=== PATIENT | male | born 1985 | race Hispanic/Latino ===

== ENCOUNTER 2019-09-24 12:44 | Inpatient (IN) | payer SELFPAY ==
[2019-09-24] MEDS ORDERED: Lorazepam 2 MG/ML VIAL ONE (13:14)
[2019-09-24] MEDS ORDERED: chlordiazePOXIDE HCl 25 MG CAP ONE (13:20)
[2019-09-24] MEDS ORDERED: chlordiazePOXIDE HCl 25 MG CAP PO SCH (13:30)
--- NOTE | 2019-09-24 13:32 | CT ---
CT OF BRAIN WITHOUT CONTRAST: HISTORY: Seizure, altered mental status. COMPARISON: There are no previous exams for comparison. FINDINGS: There is a suggestion of a 2.8 cm mass in the superior aspect of the left cerebellar hemisphere. The re is also a suggestion of a tiny amount of subarachnoid hemorrhage on the left. No midline shift is seen. The ventricular size is appropriate. The bony calvarium is intact. The visualized paranasal sinuses and mastoid air cells are well aerated. IMPRESSION: Findings suspicious for a left-sided mass and a tiny amount of acute subarachnoid hemorrhage. Furthe r evaluation with MRI (with and without IV contrast) is recommended. Discussed over the telephone with Dr. Gerardo Herny at 1:10 p.m. CODE CR POS: OFF
--- NOTE | 2019-09-24 13:40 | RAD ---
PORTABLE UPRIGHT FRONTAL CHEST RADIOGRAPH: Date: 09/24/2019 COMPARISON: None. HISTORY: Seizure. FINDINGS: No pneumothorax, pleural fluid, focal consolidation, or alveolar edema. Heart and mediastinal contour s are grossly unremarkable. IMPRESSION: No acute findings. POS: [facility]
[2019-09-24 13:50] LABS: Acetaminophen Less than 6.0 mcg/mL (10.0-30.0); Alcohol Less than 10 mg/dL (Less than 10); Magnesium 1.9 mg/dL (1.6-2.6); Salicylate Less than 8.0 mg/dL (15.0-30.0)
[2019-09-24 13:51] LABS: #Lymphocytes 0.5 thou/uL (1.20-3.40); #Monocytes 0.3 thou/uL (0.11-0.59); #Neutrophils 5.4 thou/uL (1.40-6.50); %Basophils 0.3 % (0.0-1.0); %Eosinophils 0.3 % (0.0-10.0); %Lymphocytes 7.2 % (21.0-51.0); %Monocytes 4.2 % (0.0-10.0); Hemoglobin 16.3 g/dL (14.0-18.0); Mean Corpuscular HGB CONC 36.1 g/dL (32.0-36.0); Mean Corpuscular Hemoglobin 33.8 pg (27.0-31.0); Mean Corpuscular Volume 93.5 fL (78.0-98.0); Mean Platelet Volume 10.3 fL (7.4-10.4); Platelet Count 42 thou/uL (130-400); RBC Distribution Width 11.7 % (11.5-14.5); Red Blood Cell (RBC) Count 4.83 mill/uL (4.70-6.10); White Blood Cell (WBC) Count 6.2 thou/uL (4.8-10.8)
[2019-09-24 13:52] LABS: Band 8 % (5-11); Lymphocytes 12 % (21-51); MDiff Complete? YES; Neutrophil 80 % (42-75); Platelet Morphology Comment Appears Decreased; RBC Morphology Normal
[2019-09-24 13:54] LABS: ALT (SGPT) 220 U/L (8-55); AST (SGOT) 831 U/L (5-34); Albumin 3.8 g/dL (3.5-5.0); Alkaline Phosphatase 269 U/L (40-110); Anion Gap 17 mmol/L (10-20); BUN (Urea Nitrogen) Less than 4 mg/dL (8.9-20.6); Bilirubin, Total 5.8 mg/dL (0.2-1.2); Calc. Creatinine Clearance 0 mL/min (70-130); Calcium 8.7 mg/dL (7.8-10.44); Carbon Dioxide 27 mmol/L (22-29); Chloride 93 mmol/L (98-107); Estimated GFR-MDRD Greater than 90; Globulin 3.4 g/dL (2.4-3.5); Glucose 185 mg/dL (70-105); Potassium 3.2 mmol/L (3.5-5.1); Protein, Total 7.2 g/dL (6.0-8.3); Sodium 134 mmol/L (136-145)
--- NOTE | 2019-09-24 15:35 | MRI ---
Brain MRI with and without contrast: 09/24/2019 COMPARISON: Head CT 09/24/2019 HISTORY: Seizure, EtOH abuse TECHNIQUE: Multiplanar multisequence MR imaging of the brain is obtained with and without contrast TECHNIQUE: Multiplanar multisequence MR imaging of the brain is obtained without contrast. FINDINGS: The diffusion weighted imaging demonstrates no evidence for acute infarction. The axial gradient echo imaging demonstrates a small focus of blooming artifact within the posterior aspect of the sylvian fissure on the left on axial image 11. There is hyperdensity in this region on recent head CT suggesting subarachnoid blood. Further superiorly within additional cortical sulci within the superior aspect of the left sylvian fissure extending into the posterior left frontal region there is increased FLAIR signal without blooming artifact. This could signify small volume pro teinaceous material, which could be related to small volume subarachnoid blood as well. Proteinaceous material on the basis of infection is a less likely possibility. There is a small arachnoid cyst anterior to the temporal lobe on the left measuring 2.4 cm. No midlin e shift is noted. No intra-axial mass lesion. No intra-axial hematoma. There is mild mucosal thickening involving the alveolar recess of the maxillary sinus on the left. Ar terial flow voids at the axial level of the skull base appear grossly unremarkable on the T2-weighted imaging. The postcontrast imaging demonstrates no abnormal enhancement within the brain parenchyma. IMPRESSION: Signal abnormality within the posterior aspect of the sylvian fissure on the left as well as within cortical sulci within the left frontal lobe. This is favored to represent small volume subarachnoid hemorrhage. Proteinaceous material within the subarachnoid space on the basis of infecti on cannot be fully excluded. Clinical correlation is essential. Short-term follow-up CT examination suggested as well.
[2019-09-24] MEDS ORDERED: Ondansetron ODT 4 MG TAB SL PRN (15:41)
[2019-09-24] MEDS ORDERED: Ondansetron PF 4 MG/2 ML Vial IVP PRN ×2 (15:41→19:10)
[2019-09-24] MEDS ORDERED: Magnevist 469MG/ML 20 ML VIAL ONE (16:36)
[2019-09-24 17:52] LABS: Amphetamine Not Detected (NotDetected); Barbiturates Screen Not Detected (NotDetected); Benzodiazepine Screen Detected (NotDetected); Cocaine Metabolite Screen Not Detected (NotDetected); Medtox Control Line Valid? VALID (VALID); Medtox Reader # READER 1; Methadone Not Detected (NotDetected); Methamphetamine Not Detected (NotDetected); Opiate Screen Not Detected (NotDetected); Oxycodone Screen Not Detected (NotDetected); Phencyclidine (PCP) Not Detected (NotDetected); THC/Cannabinoid Screen Not Detected (NotDetected); Tricyclic Screen Not Detected (NotDetected)
[2019-09-24] MEDS ORDERED: Lorazepam 2 MG/ML VIAL SLOW IVP PRN (19:10)
[2019-09-24] MEDS ORDERED: hydrALAZINE 20 MG/ML VIAL SLOW IVP PRN (19:10)
[2019-09-24] MEDS ORDERED: Labetalol HCl 100 MG/20 ML VIAL SLOW IVP PRN (19:10)
[2019-09-24] MEDS ORDERED: Ondansetron ODT 4 MG TAB PO PRN (19:10)
[2019-09-24] MEDS: Multivitamins, Adult 10 ML, Folic Acid 1 MG, Thiamine HCl 100 MG in Dextrose 5 %-0.45 %... IV SCH (22:06)
[2019-09-24] MEDS: Atorvastatin Calcium 40 MG TAB PO SCH (22:07)
[2019-09-24] MEDS: Famotidine/PF 20 mg/2ml Vial SLOW IVP SCH (22:07)
[2019-09-24 22:40] VITALS: BMI 29.2
--- NOTE | 2019-09-24 22:58 | ULT ---
BILATERAL CAROTID DUPLEX ULTRASOUND WITH SPECTRAL ANALYSIS AND COLOR FLOW EVALUATION 09/24/19 HISTORY: CVA. FINDINGS: Dillard scale, color flow, Doppler evaluation with spectral analysis of the bilateral carotid arteries i s performed with 2D imaging. No significant atherosclerotic plaque is seen within the carotid arterie s bilaterally. There is less than 50% maximal stenosis in the bilateral internal carotid arteries according to the p eak systolic velocities and the ICA/CCA ratios. The peak systolic velocity in the right ICA is 36.8 c m/s with an ICA/CCA ratio of 0.48. Peak systolic velocity in the left ICA is 48.6 cm/s with an ICA/CC A ratio of 0.56. Antegrade flow is demonstrated in the vertebral arteries bilaterally. IMPRESSION: No hemodynamically significant stenosis in the bilateral internal carotid arteries. POS: [facility]
[2019-09-25 04:42] LABS: ALT (SGPT) 193 U/L (8-55); AST (SGOT) 647 U/L (5-34); Albumin 3.4 g/dL (3.5-5.0); Alkaline Phosphatase 263 U/L (40-110); Anion Gap 12 mmol/L (10-20); BUN (Urea Nitrogen) Less than 4 mg/dL (8.9-20.6); Bilirubin, Total 5.5 mg/dL (0.2-1.2); Calc. Creatinine Clearance 164 mL/min (70-130); Calcium 8.2 mg/dL (7.8-10.44); Carbon Dioxide 29 mmol/L (22-29); Cardiac Risk 19.8 (Less than 4.5); Chloride 97 mmol/L (98-107); Cholesterol 218 mg/dl (< 200 Desired); Estimated GFR-MDRD Greater than 90; Globulin 3.3 g/dL (2.4-3.5); Glucose 106 mg/dL (70-105); HDL Cholesterol 11 mg/dL (>60 Neg Risk); Protein, Total 6.7 g/dL (6.0-8.3); Sodium 135 mmol/L (136-145); Triglycerides 844 mg/dL (Less than 150)
[2019-09-25 04:55] LABS: Potassium 2.9 mmol/L (3.5-5.1)
[2019-09-25 05:06] LABS: Thyroid Stimulating Hormone 2.9975 uIU/mL (0.35-4.94)
[2019-09-25 05:15] LABS: Vitamin B12 Greater than 2000 pg/mL (211-911)
[2019-09-25] MEDS ORDERED: Potassium Chloride 20 MEQ TAB PO SCH ×2 (05:30→10:30)
[2019-09-25 05:54] LABS: Band 17 % (5-11); Hemoglobin 15.2 g/dL (14.0-18.0); Lymphocytes 23 % (21-51); MDiff Complete? YES; Mean Corpuscular HGB CONC 34.8 g/dL (32.0-36.0); Mean Corpuscular Hemoglobin 33.4 pg (27.0-31.0); Mean Corpuscular Volume 95.8 fL (78.0-98.0); Mean Platelet Volume 11.1 fL (7.4-10.4); Monocytes 3 % (0-10); Neutrophil 57 % (42-75); Platelet Count 42 thou/uL (130-400); Platelet Morphology Comment Appears Decreased; RBC Distribution Width 11.9 % (11.5-14.5); Red Blood Cell (RBC) Count 4.54 mill/uL (4.70-6.10); White Blood Cell (WBC) Count 6.3 thou/uL (4.8-10.8)
--- NOTE | 2019-09-25 08:55 | CT ---
CT HEAD WITHOUT CONTRAST: HISTORY: Followup from CVA yesterday. Stroke. COMPARISON: 09/24/2019 FINDINGS: Hemorrhage: No intraparenchymal hemorrhage or extra-axial hematoma. Persistent hyperdensity in the le ft sylvian fissure. Correlation made with the axial GRE sequence and axial FLAIR sequence does demonstrate corresponding signal abnormality. Findings appear to be stable and conformed to a small f ocus of subarachnoid blood. Brain parenchyma: Cortical barraza-white matter differentiation is preserved. No mass effect or midline shift. Basilar cisterns are patent. Ventricular system: Ventricles and sulci are patent and symmetric. Calvarium: Intact. Sinuses and mastoid air cells: Adequate aeration. IMPRESSION: Essentially stable hyperdensity in the left sylvian fissure. Small focus of subarachnoid blood is fav ored. Transcribed Date/Time: 09/25/2019 9:22 AM
[2019-09-25] MEDS ORDERED: Prevnar 13-Val Conj/PF 0.5 ML SYRINGE IM ONE (09:00)
[2019-09-25] MEDS: FLU VACC QS2019-20(6MOS UP)/PF 60 MCG/0.5 ML SYRINGE IM ONE (09:19)
[2019-09-25] MEDS: Famotidine/PF 20 mg/2ml Vial SLOW IVP SCH (09:21)
[2019-09-25] MEDS: Acetaminophen 500 MG TAB PO PRN ×2 (09:31→16:58)
--- NOTE | 2019-09-25 10:18 | PDOC.HOSPP ---
- Subjective Encounter Date: 09/25/19 Encounter Time: 10:15 Subjective: f/u for ETOH withdrawal seizure resulting in small SAH. Feels ok overall and no reported recurrent seizures. Tx with Ativan and Keppra. - Objective Vital Signs & Weight: Vital Signs (12 hours) Temp Pulse Resp BP BP Pulse Ox 09/25/19 08:00 132/97 H 09/25/19 07:45 100 F H 93 16 132/97 H 98 09/25/19 04:00 113/81 09/25/19 03:58 99.8 F H 97 16 113/81 98 09/25/19 00:00 136/95 H 09/24/19 23:53 99.9 F H 106 H 16 130/86 97 Weight Weight 175 lb 6.4 oz Result Diagrams: 09/25/19 04:05 09/25/19 04:05 Additional Labs: Laboratory Tests 09/24/19 09/24/19 09/24/19 13:10 13:10 15:56 Potassium 3.2 L Magnesium 1.9 AST 831 H ALT 220 H Ammonia Greater than 925 H Triglycerides Cholesterol HDL Cholesterol Vitamin B12 Folate TSH 3rd Generation 09/25/19 09/25/19 09/25/19 04:05 04:05 04:05 Potassium Magnesium 2.0 AST 647 H ALT 193 H Ammonia Triglycerides 844 H Cholesterol 218 H HDL Cholesterol 11 Vitamin B12 Greater than 2000 H Folate 61.20 H TSH 3rd Generation 2.9975 09/25/19 04:05 Potassium Magnesium AST ALT Ammonia 106 H Triglycerides Cholesterol HDL Cholesterol Vitamin B12 Folate TSH 3rd Generation Radiology Reviewed by me: Yes (Carotid sono - neg; CT brain - no significant change) EKG Reviewed by me: Yes (Tele - SR) Hospitalist ROS - Medication Medications: Active Medications Generic Name Dose Route Start Last Admin Trade Name Freq PRN Reason Stop Dose Admin Acetaminophen 1,000 mg 09/24/19 19:10 09/25/19 09:31 Tylenol PO 1,000 mg Q6H PRN Administration Mild Pain (1-3) Atorvastatin Calcium 40 mg 09/24/19 21:00 09/24/19 22:07 Lipitor PO 40 mg HS KATHI Administration Famotidine 20 mg 09/24/19 21:00 09/25/19 09:21 Pepcid SLOW IVP Not Given Q12HR KATHI Multivitamins 10 ml/ Folic 1,011.2 mls @ 125 mls/hr 09/24/19 21:00 09/24/19 22:06 Acid 1 mg/ Thiamine HCl 100 mg IV 09/27/19 05:06 1,011.2 mls / Dextrose/Sodium Chloride Q24HR KATHI Administration Levetiracetam 500 mg/ Device 100 mls @ 200 mls/hr 09/24/19 21:00 09/25/19 09: 21 IVPB 100 mls BID KATHI Administration - Exam General Appearance: NAD, awake alert Eye: PERRL, anicteric sclera ENT: normocephalic atraumatic, no oropharyngeal lesions Neck: supple, symmetric, no JVD, no thyromegaly, no lymphadenopathy Heart: RRR, no murmur, no gallops, no rubs, normal peripheral pulses Respiratory: CTAB, no wheezes, no rales, no ronchi, normal chest expansion Gastrointestinal: soft, non-tender, non-distended, normal bowel sounds, no palpable masses Extremities: no cyanosis, no clubbing, no edema Skin: normal turgor, no lesions Neurological: cranial nerve grossly intact, no new deficit Musculoskeletal: normal tone, normal strength Psychiatric: normal affect, normal behavior, A&O x 3 Hosp A/P (1) SAH (subarachnoid hemorrhage) Code(s): I60.9 - NONTRAUMATIC SUBARACHNOID HEMORRHAGE, UNSPECIFIED Status: Acute Plan: conservative mgmt, hold ASA/NSAIDs (2) Alcohol withdrawal seizure Code(s): F10.239 - ALCOHOL DEPENDENCE WITH WITHDRAWAL, UNSPECIFIED; R56.9 - UNSPECIFIED CONVULSIONS Status: Acute Plan: Stable currently, continue Ativan/Keppra (3) Alcohol abuse Code(s): F10.10 - ALCOHOL ABUSE, UNCOMPLICATED Status: Acute Plan: Banana bag daily, ETOH avoidance, Ativan for d/c (4) Hypokalemia Code(s): E87.6 - HYPOKALEMIA Status: Acute Plan: KCL supplementation - Plan plan discussed w/ family, 

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
[2019-09-25] MEDS ORDERED: Chlorhexidine Gluconate 15 ML UDCUP SSP SCH (11:00)
--- NOTE | 2019-09-25 11:36 | CON ---
DATE OF CONSULTATION: HISTORY OF PRESENT ILLNESS: The patient is a 34-year-old male with a history of EtOH abuse, who presented to the ER last night following a seizure event. The patient reports that he had recently been trying to quit his alcohol use, but subsequently had several seizure episodes at home. He was initially slightly confused upon arrival to the ER, but this has improved since this admission. The patient had CT and MRI of the brain, which were notable for small hyperdensity in the left sylvian fissure, which favors acute traumatic subarachnoid hemorrhage, likely from the seizure event. He also has a left-sided arachnoid cyst in the frontal region, which is an incidental finding. I visited the patient at the bedside on the Stroke Unit. The patient is awake, alert, in no acute distress. He is slightly tremulous. He has free active range of motion of all extremities. No focal motor weakness. No focal neurologic deficits are appreciated. PAST MEDICAL HISTORY: EtOH abuse. ALLERGIES: THE PATIENT IS ALLERGIC TO ASPIRIN. MEDICATIONS: No known medication. REVIEW OF SYSTEMS: Per HPI. PHYSICAL EXAMINATION: GENERAL: The patient is awake, alert, in no acute distress. HEENT: Head; normocephalic and atraumatic. Eyes; PERRLA. Extraocular movements intact. ENT; oral mucosa is pink, intact, and moist. NECK: Nontender. The patient has normal range of motion of the neck. No meningismus or nuchal rigidity. RESPIRATORY: Symmetric chest expansion. CARDIOVASCULAR: Slightly tachycardic. MUSCULOSKELETAL: Free active range of motion of all extremities. No focal motor weakness. No deformities. NEURO: A and O x4. No focal neurologic deficits are appreciated. ASSESSMENT AND PLAN: The patient is a 34-year-old male, who suffered a seizure event following the EtOH withdrawal. His CT and MRI showed hyperdensity that is favored to be acute traumatic subarachnoid hemorrhage, likely from the seizure event. This has been stable on followup imaging. He also has an incidental left-sided arachnoid cyst formation, which is also inconsequential. At this point, the patient has remained neurologically intact with stable followup imaging. There are no plans for acute neurosurgical intervention. He does not require any neurosurgical followup. I anticipate the small amount of blood will resolve with time. Please reach out to Neurosurgery for any additional questions or concerns. Job ID: [id number]
--- NOTE | 2019-09-25 12:08 | CT ---
CTA OF THE HEAD WITH AND WITHOUT CONTRAST: NONCONTRAST CT OF BRAIN: CTA OF THE BRAIN: INDICATION: Subarachnoid hemorrhage noted on previous CT. COMPARISON: 09/25/2019 and 09/24/2019 CORRELATION: Brain MRI from 09/24/2019. FINDINGS: Hemorrhage: Previously noted subarachnoid blood in the left sylvian fissure is less evident currentl y. No new areas of hemorrhage. [place]/Infarction: None. Midline Shift: None. Hydrocephalus: None. Skull and Extracranial Soft tissues: Normal. Right ICA: Distal cervical right internal carotid artery has appropriate enhancement and luminal domenic meter. Right MCA: Appropriate enhancement and luminal diameter. Right SOHAN: Appropriate enhancement and luminal diameter. ACOM: Patent. Left ICA: Distal cervical left internal carotid artery has appropriate enhancement and luminal diame ter. Left MCA: Appropriate enhancement and luminal diameter. Left SOHAN: Appropriate enhancement and luminal diameter. Vertebral arteries: Intracranial left vertebral artery is slightly more dominant. Right PICA origin is not appreciated. Left PICA origin is unremarkable. Basilar Artery: Both vertebral arteries supply a normal caliber basilar artery. visitor services representative: Left P1 segment has appropriate enhancement and luminal diameter. The right ONION FARMER has a or igin. IMPRESSION: No hemodynamically significant stenosis, occlusion or aneurysmal formation. Transcribed Date/Time: 09/25/2019 12:29 PM
[2019-09-25] MEDS ORDERED: Iopamidol 370 76% 100 ML VIAL ONE (14:45)
[2019-09-25] MEDS: Potassium Chloride 20 MEQ TAB PO SCH (16:58)
[2019-09-25] MEDS: Multivitamins, Adult 10 ML, Folic Acid 1 MG, Thiamine HCl 100 MG in Dextrose 5 %-0.45 %... IV SCH (21:02)
[2019-09-25] MEDS: Chlorhexidine Gluconate 15 ML UDCUP SSP SCH (21:03)
[2019-09-25] MEDS: levETIRAcetam 500 MG TAB PO SCH (21:04)
[2019-09-25] MEDS: Atorvastatin Calcium 40 MG TAB PO SCH (21:04)
[2019-09-25] MEDS: Famotidine 20 MG TAB PO SCH (21:15)
[2019-09-26] MEDS: Acetaminophen 500 MG TAB PO PRN (04:04)
[2019-09-26 05:28] LABS: ALT (SGPT) 216 U/L (8-55); AST (SGOT) 576 U/L (5-34); Albumin 3.4 g/dL (3.5-5.0); Alkaline Phosphatase 301 U/L (40-110); Anion Gap 8 mmol/L (10-20); BUN (Urea Nitrogen) Less than 4 mg/dL (8.9-20.6); Bilirubin, Total 3.8 mg/dL (0.2-1.2); Calc. Creatinine Clearance 164 mL/min (70-130); Calcium 8.4 mg/dL (7.8-10.44); Carbon Dioxide 30 mmol/L (22-29); Chloride 104 mmol/L (98-107); Estimated GFR-MDRD Greater than 90; Globulin 3.3 g/dL (2.4-3.5); Glucose 152 mg/dL (70-105); Potassium 3.9 mmol/L (3.5-5.1); Protein, Total 6.7 g/dL (6.0-8.3); Sodium 138 mmol/L (136-145)
[2019-09-26 07:44] VITALS: TEMP 99.3
[2019-09-26 07:50] VITALS: BP 159/88
[2019-09-26] MEDS: Famotidine 20 MG TAB PO SCH (09:01)
[2019-09-26] MEDS: Potassium Chloride 20 MEQ TAB PO SCH (09:02)
[2019-09-26] MEDS: Chlorhexidine Gluconate 15 ML UDCUP SSP SCH (09:02)
[2019-09-26] MEDS: levETIRAcetam 500 MG TAB PO SCH (09:03)
[2019-09-26] MEDS: FLU VACC QS2019-20(6MOS UP)/PF 60 MCG/0.5 ML SYRINGE IM ONE (09:03)
--- NOTE | 2019-09-27 04:30 | DIS ---
DATE OF ADMISSION: 09/24/2019 DATE OF DISCHARGE: 09/26/2019 DISCHARGE DIAGNOSES: 1. Subarachnoid hemorrhage secondarily to seizure. 2. Alcohol withdrawal seizure. 3. Alcohol abuse. 4. Hypokalemia, resolved. 5. Alcohol-induced hepatitis. CONSULTATIONS: 1. Dr. Abhishek Salter with Neurology Service. 2. Dr. Justin Davenport with Neurosurgical Service. PERTINENT LABORATORY AND X-RAY FINDINGS: Potassium ranged between 2.9 to 3.9. Magnesium level 2.0. Total bilirubin ranged between 3.8 to 5.5. AST ranged between 576 to 831, ALT ranged between 193 to 220, alkaline phosphatase ranged between 263 to 301. Total cholesterol 218, triglycerides 844, HDL 11. Vitamin B12 level greater than 2000. Folate level 61.2. TSH 3.0. Urine drug screen dated 09/24/2019 positive for benzodiazepines. Plasma alcohol level less than 10. MRI of the brain dated 09/24/2019 showed small volume subarachnoid hemorrhage in the left sylvian fissure and sulci of the left frontal lobe. CT of the brain without contrast dated 09/24/2019 showed left-sided mass with small amount of acute subarachnoid hemorrhage. Portable chest x-ray dated 09/24/2019 showed no acute cardiopulmonary process. Carotid Doppler study dated 09/24/2019 showed no hemodynamically significant stenosis. Repeat CT of the brain dated 09/25/2019 showed stable subarachnoid hemorrhage in the left sylvian fissure. CT angiogram of the [place] dated 09/25/2019 showed no focal stenosis or aneurysm. 2D transthoracic echocardiogram dated 09/25/2019 showed ejection fraction of 50% to 55%. HOSPITAL COURSE: The patient was admitted to the Stroke Unit after initially presenting status post alcohol withdrawal seizure. The patient with longstanding chronic alcoholism, presented status post seizure activity. The patient underwent evaluation including CT imaging of the brain showing evidence of small amount of subarachnoid hemorrhage in the left sylvian fissure. MRI did confirm the subarachnoid hemorrhage, at which point patient was evaluated by the Neurosurgical Team and Neurology Service. No specific recommendations for surgical intervention as the area of involvement was small and contained and did not show any sign of progression. The patient was placed on Keppra and Ativan without recurrence of seizure activity during the hospital course. The patient continued general alcohol withdrawal protocol with Ativan and general supportive management, however, did not exhibit evidence of withdrawal seizure or activity during the hospital course. The patient received information and education regarding alcohol cessation programs on an outpatient basis. Overall, the patient did remain clinically stable with general supportive management and observation. I have examined the patient at the time of discharge and discussed followup instructions. The patient verbalized understanding and agreement, ready for discharge on 09/26/2019. DISCHARGE MEDICATIONS: 1. Lipitor 40 mg p.o. at bedtime. 2. Keppra 500 mg p.o. b.i.d. x6 months. 3. Ativan 1 mg p.o. t.i.d. p.r.n. withdrawal. FOLLOWUP: The patient may follow with primary care provider of choice. SPECIAL INSTRUCTIONS: The patient may also follow up with outpatient alcohol rehabilitation programs provided by Case Management Services. CONDITION ON DISCHARGE: Stable. ACTIVITY: Ad-jamshid. DIET: Heart healthy. CODE STATUS: Full. DISPOSITION: To home, 09/26/2019. TIME SPENT: Total time preparing and coordinating discharge 33 minutes. Job ID: [id number]
== END 2019-09-26 11:52 | disposition home or self-care (01) | DRG 896 ==
LOC: ERS 12:44 → 2SE 16:12
PROVIDERS: ADMIT Family Medicine; ATTEND Family Medicine
DX: F10.239 Alcohol dependence with withdrawal, unspecified (principal); I60.9 Nontraumatic subarachnoid hemorrhage, unspecified; I16.0 Hypertensive urgency; K70.10 Alcoholic hepatitis without ascites; F10.288 Alcohol dependence with other alcohol-induced disorder; E87.6 Hypokalemia; Z88.8 Allergy status to other drugs, medicaments and biological substances
CPT/HCPCS: 36415; 70450; 70496; 70553; 71045; 80053; 80061; 80306; 80307; 82140; 82607; 82746; 83735; 84443; 85007; 85025; 85027; 90471; 90670; 90686; 90732; 93005; 93306; 93880; 96361; 96374; A9579; G0008; G0009; J1953; J2060; J3411; J7042; Q9967; S0028

== ENCOUNTER 2025-04-25 05:46 | Inpatient (IN) | payer BC ==
[2025-04-25 06:52] VITALS: BMI 30.9
[2025-04-25] MEDS ORDERED: Acetaminophen 325 MG TAB PO PRN (08:16)
[2025-04-25] MEDS ORDERED: Dextrose 50% Abboject 50 ML SYRINGE SLOW IVP PRN (08:18)
[2025-04-25] MEDS ORDERED: Glucagon 1 MG/ML KIT IM PRN (08:18)
[2025-04-25] MEDS ORDERED: Non-Formulary Item 1 EACH (Sitagliptin Phosphate [Januvia] 50 MG Tab) PO SCH (09:00)
[2025-04-25] MEDS: metFORMIN 500 MG TAB PO SCH (09:33)
[2025-04-25] MEDS: Folic Acid 1 MG TAB PO SCH (09:33)
[2025-04-25] MEDS: Sertraline 25 MG TAB PO SCH (09:33)
[2025-04-25] MEDS: levETIRAcetam 500 MG TAB PO SCH (09:33)
[2025-04-25] MEDS: Lisinopril 20 MG TAB PO SCH (10:53)
[2025-04-25] MEDS: PNEUMOC 20-VAL CONJ-DIP CRM/PF 0.5 ML SYRINGE IM ONE (18:10)
[2025-04-26 08:30] LABS: Hematocrit 41.8 % (42.0-52.0); Hemoglobin 14.5 g/dL (14.0-18.0); Mean Corpuscular Hemoglobin 31.0 pg (27.0-31.0); Mean Corpuscular Volume 89.5 fL (78.0-98.0); Platelet Count 100 10x3/uL (130-400); Red Blood Cell (RBC) Count 4.67 mill/uL (4.70-6.10); White Blood Cell (WBC) Count 11.81 10x3/uL (4.8-10.8)
[2025-04-26 09:08] LABS: ALT (SGPT) 17 U/L (Less than 45); AST (SGOT) 21 U/L (11-34); Albumin 4.0 g/dL (3.1-4.5); Alkaline Phosphatase 60 U/L (40-110); Anion Gap 17 mmol/L (10-20); BUN (Urea Nitrogen) 11 mg/dL (8.9-20.6); Bilirubin, Total 0.6 mg/dL (0.3-1.2); Calc. Creatinine Clearance 220 mL/min (70-130); Calcium 9.4 mg/dL (7.8-10.44); Carbon Dioxide 22 mmol/L (22-29); Cardiac Risk 4.0 (Less than 4.5); Chloride 105 mmol/L (98-107); Cholesterol 178 mg/dl (< 200 Desired); Globulin 3.0 g/dL (2.4-3.5); Glucose 131 mg/dL (70-105); HDL Cholesterol 44 mg/dL (>60 Neg Risk); LDL Cholesterol, Calculated 119 mg/dL; Potassium 4.1 mmol/L (3.5-5.1); Sodium 140 mmol/L (136-145); Triglycerides 76 mg/dL (Less than 150)
[2025-04-26 09:10] LABS: Macrocytosis SLIGHT = 6-15 cells HPF (0-5); Platelet Adequacy Comment Platelets Decreased; RBC Morphology Within Normal Limits
[2025-04-26 09:12] LABS: #Basophils Less than 0.03 10x3/uL (0.0-0.2); #Eosinophils 0.05 10x3/uL (0.0-0.7); #Monocytes 0.57 10x3/uL (0.11-0.59); #Neutrophils 8.30 10x3/uL (1.40-6.50); %Basophils 0.2 % (0.0-1.0); %Eosinophils 0.4 % (0.0-10.0); %Lymphocytes 23.6 % (21.0-51.0); %Monocytes 4.8 % (0.0-10.0); %Neutrophils 70.5 % (42.0-75.0)
[2025-04-26] MEDS: Insulin Glargine 30 UNITS/0.3 ML VIAL SC SCH (20:35)
[2025-04-27 05:09] LABS: #Basophils Less than 0.03 10x3/uL (0.0-0.2); #Eosinophils 0.11 10x3/uL (0.0-0.7); #Monocytes 0.56 10x3/uL (0.11-0.59); #Neutrophils 7.82 10x3/uL (1.40-6.50); %Basophils 0.2 % (0.0-1.0); %Eosinophils 1.0 % (0.0-10.0); %Lymphocytes 25.5 % (21.0-51.0); %Monocytes 4.9 % (0.0-10.0); %Neutrophils 68.1 % (42.0-75.0); Hematocrit 42.9 % (42.0-52.0); Hemoglobin 14.9 g/dL (14.0-18.0); Mean Corpuscular Hemoglobin 30.8 pg (27.0-31.0); Mean Corpuscular Volume 88.6 fL (78.0-98.0); Platelet Count 89 10x3/uL (130-400); Red Blood Cell (RBC) Count 4.84 mill/uL (4.70-6.10); White Blood Cell (WBC) Count 11.48 10x3/uL (4.8-10.8)
[2025-04-27 05:14] LABS: ALT (SGPT) 16 U/L (Less than 45); AST (SGOT) 27 U/L (11-34); Albumin 3.9 g/dL (3.1-4.5); Alkaline Phosphatase 57 U/L (40-110); Anion Gap 16 mmol/L (10-20); BUN (Urea Nitrogen) 11 mg/dL (8.9-20.6); Bilirubin, Total 0.6 mg/dL (0.3-1.2); Calc. Creatinine Clearance 220 mL/min (70-130); Calcium 9.2 mg/dL (7.8-10.44); Carbon Dioxide 19 mmol/L (22-29); Chloride 106 mmol/L (98-107); Globulin 3.2 g/dL (2.4-3.5); Glucose 127 mg/dL (70-105); Potassium 4.1 mmol/L (3.5-5.1); Sodium 137 mmol/L (136-145)
[2025-04-27 10:37] VITALS: TEMP 98
[2025-04-27 13:41] VITALS: BP 111/74
== END 2025-04-27 16:07 | disposition home or self-care (01) | DRG 639 ==
LOC: PCU 06:27 → INTOOBSV 06:27 → OBS 17:50 → OBSVTOIN 04-26 10:14
PROVIDERS: ADMIT Student in an Organized Health Care Education/Training Program; ATTEND Family Medicine
DX: E11.649 Type 2 diabetes mellitus with hypoglycemia without coma (principal); E11.42 Type 2 diabetes mellitus with diabetic polyneuropathy; K76.0 Fatty (change of) liver, not elsewhere classified; F10.10 Alcohol abuse, uncomplicated; G40.909 Epilepsy, unspecified, not intractable, without status epilepticus; Z88.8 Allergy status to other drugs, medicaments and biological substances; Z79.899 Other long term (current) drug therapy; Z79.4 Long term (current) use of insulin; Z79.84 Long term (current) use of oral hypoglycemic drugs
CPT/HCPCS: 36415; 36416; 80053; 80061; 82140; 83036; 84146; 85025; G0378; J1815; J7030